=== PATIENT | female | born 1980 | race Caucasian/White ===

== ENCOUNTER 2021-10-06 16:50 | Emergency (ER) | payer OTHER, BC ==
[2021-10-06] MEDS ORDERED: HYDROcodone/APAP 5-325MG 1 EACH TAB PO STA (21:02)
[2021-10-06] MEDS ORDERED: KETOROLAC 15 MG/ML 1 ML VIAL IM STA (21:02)
[2021-10-06] MEDS ORDERED: CYCLOBENZAPRINE 10 MG TAB PO STA (21:03)
--- NOTE | 2021-10-06 21:06 | ED ---
Back Pain HPI - General Chief Complaint: Back Pain/Injury Stated Complaint: Back injury, [facility] Time Seen by Provider: 10/06/21 20:54 Source: patient, RN notes reviewed Limitations: no limitations - History of Present Illness Initial Comments: Assisting a pleasant 41-year-old female presents to emergency department complaining of low back pain. 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 When she did this she felt a sharp twinge in her back. Since then any movement has exacerbated the pain. She denies any other issues. No changes in urination or bowel tones. No symptoms that aren't seizure. Is able to ambulate. States that movement exacerbates the pain. Position and rest alleviated somewhat. No headache, no fever or chills, no changes in vision or hearing, no sore throat or difficulty with speech, no neck pain, no chest pain or shortness of breath, no abdominal pain, no nausea or vomiting, no changes in urination or bowel movements, no numbness or tingling, no extremity pain, no skin rashes or lesions. MD Complaint: back pain - Related Data Home Medications Medication Instructions Recorded Confirmed Desvenlafaxine Succinate [Pristiq 100 mg PO HS 12/04/13 12/06/13 ER] Previous Rx's Medication Instructions Recorded Cyclobenzaprine [Flexeril] 10 mg PO TID PRN #20 tab 10/06/21 Naproxen [Naprosyn] 500 mg PO Q12HR #24 tab 10/06/21 Allergies Allergy/AdvReac Type Severity Reaction Status Date / Time bupropion HCl Allergy Itching/Weird Verified 10/06/21 17:39 [From Wellbutrin] dreams codeine Allergy Unknown Verified 10/06/21 17:39 Review of Systems ROS Statement: Those systems with pertinent positive or pertinent negative responses have been documented in the HPI. ROS Other: All systems not noted in ROS Statement are negative. Past Medical History Past Medical History: Neurologic Disorder Additional Past Medical History / Comment(s): 3 episodes of abdominal pain last time in ER @ [facility] 11/20/13. migraines- last one a few months ago History of Any Multi-Drug Resistant Organisms: None Reported Past Surgical History: No Surgical Hx Reported Additional Past Surgical History / Comment(s): never had surgery before Past Anesthesia/Blood Transfusion Reactions: No Reported Reaction Additional Past Anesthesia/Blood Transfusion Reaction / Comment(s): pt has never had surgery Past Psychological History: Anxiety, Depression Smoking Status: Never smoker Past Alcohol Use History: Occasional Past Drug Use History: None Reported - Past Family History Father Family Medical History: Cancer Additional Family Medical History / Comment(s): lung ca Mother Family Medical History: Cancer Additional Family Medical History / Comment(s): lung,breast,cervical & possible colon ca General Exam Limitations: no limitations General appearance: alert, in distress (Mild), obese Head exam: Present: atraumatic, normocephalic, normal inspection Eye exam: Present: normal appearance, PERRL, EOMI. Absent: scleral icterus, conjunctival injection, periorbital swelling ENT exam: Present: normal exam, mucous membranes moist Neck exam: Present: normal inspection, full ROM. Absent: tenderness, meningismus, lymphadenopathy Respiratory exam: Present: normal lung sounds bilaterally. Absent: respiratory distress, wheezes, rales, rhonchi, stridor Cardiovascular Exam: Present: regular rate, normal rhythm, normal heart sounds. Absent: systolic murmur, diastolic murmur, rubs, gallop, clicks GI/Abdominal exam: Present: soft, normal bowel sounds. Absent: distended, tenderness, guarding, rebound, rigid Extremities exam: Present: normal inspection, full ROM, normal capillary refill. Absent: tenderness, pedal edema, joint swelling, calf tenderness Back exam: Present: normal inspection, tenderness (Bilateral lumbar paraspinal tenderness.), muscle spasm (Right lumbar paraspinal), paraspinal tenderness. Absent: full ROM (Limited by pain), vertebral tenderness, rash noted Neurological exam: Present: alert, oriented X3, CN II-XII intact, normal gait, other (Straight leg raise negative). Absent: motor sensory deficit Psychiatric exam: Present: normal affect, normal mood Skin exam: Present: warm, dry, intact, normal color. Absent: rash Course Vital Signs 10/06/21 17:35 Temperature 98.1 F Pulse Rate 86 Respiratory 20 Rate Blood Pressure 150/87 O2 Sat by Pulse 98 Oximetry Medical Decision Making - Medical Decision Making -There are no red flags for concerning back pathology. Specifically: -No history of cancer, this is not a mass effect, MRI not indicated. -No anticoagulation, this is not a bleed. -No fevers, no IVDU, this is not an infectious process. -No trauma, no bony pain, x-rays are not indicated. -With a normal neuro exam, and no urinary or bowel retention or incontinence, there is no clinical sign of motor defect or cauda equina - MRI is not indicated at this point. -No pulsating abdominal mass or risk factors for AAA. -Pain is relieved with rest, which is also less concerning. -I do not believe that x-rays or emergent MRI is indicated at this time. -We will treat symptomatically and discharge home with follow up instructions. -Stretching/strengthening exercise given to patient and they will be referred to physical therapy - [employer], Dr. Miller Disposition Clinical Impression: Mechanical back pain, Acute lumbar myofascial strain Disposition: HOME SELF-CARE Condition: Good Instructions (If sedation given, give patient instructions): Acute Low Back Pain (ED) Additional Instructions: Follow-up with your regular physician as directed. Return to the ER immediately if any symptoms worsen, new symptoms arise, or any other problems develop. Prescriptions: Cyclobenzaprine [Flexeril] 10 mg PO TID PRN #20 tab PRN Reason: Spasms Naproxen [Naprosyn] 500 mg PO Q12HR #24 tab Is patient prescribed a controlled substance at d/c from ED?: No Referrals: Jalen Castro DO [Doctor of Osteopathic Medicine] - 10/08/21 Time of Disposition: 21:06
[2021-10-06 21:30] VITALS: BP 147/86; PULSE 83; RESP 18; TEMP 98.3
== END 2021-10-06 21:29 | disposition home or self-care (01) ==
LOC: EC 16:50
DX: S39.012A Strain of muscle, fascia and tendon of lower back, initial encounter (principal); G43.909 Migraine, unspecified, not intractable, without status migrainosus; F41.9 Anxiety disorder, unspecified; F32.A Depression, unspecified; Z72.89 Other problems related to lifestyle; Z88.5 Allergy status to narcotic agent; Z88.8 Allergy status to other drugs, medicaments and biological substances; X58.XXXA Exposure to other specified factors, initial encounter; Y92.89 Other specified places as the place of occurrence of the external cause
CPT/HCPCS: 99283 ×2; 96372; J1885

== ENCOUNTER → 2021-10-08 | Outpatient (CLI) | payer OTHER ==
--- NOTE | 2021-10-08 13:00 | XR ---
EXAMINATION TYPE: XR lumbar spine 2 or 3V DATE OF EXAM: 10/08/2021 CLINICAL HISTORY: Low back pain after twisting injury. TECHNIQUE: Frontal and lateral images of the lumbar spine are obtained. COMPARISON: Lumbar spine x-ray May 22, 2013 FINDINGS: There are 5 lumbar type vertebral bodies redemonstrated. There is slight levoconvex scolio tic curvature centered at L3-L4 level on current study. Alignment satisfactory on lateral view. Verte bral body heights and disc space heights are maintained. No acute displaced fracture is seen. Overlyi ng soft tissue is unremarkable. IMPRESSION: As above.
== END | disposition home or self-care (01) ==
LOC: RADXRMAIN 11:53
PROVIDERS: ATTEND Emergency Medicine
DX: M41.86 Other forms of scoliosis, lumbar region (principal)
CPT/HCPCS: 72100